=== PATIENT | male | born 1950 | race American Indian/Alaskan Native ===

== ENCOUNTER 2017-02-28 21:20 | Emergency (ER) | payer MEDICAID ==
[2017-03-01] MEDS ORDERED: GLUCOPHAGE PO ONE (05:00)
[2017-03-01] MEDS ORDERED: COZAAR PO ONE (05:01)
[2017-03-01] MEDS ORDERED: NORVASC PO ONE (05:01)
--- NOTE | 2017-03-01 05:05 | Emergency Department Report ---
ED Medical Clearance HPI - General Chief complaint: Medical Clearance Stated complaint: OUT OF MEDS FOR HTN AND DM Time Seen by Provider: 03/01/17 04:30 Source: patient Mode of arrival: Ambulatory - History of Present Illness Initial comments: 66-year-old male past medical history, HLD, hypertension, dmt2, p/w request for his daily dose of losartan, amlodipine and metformin. He sees in the ER with his daughter who is currently a patient here and has not had the opportunity to take his daily medicines. Denies headache dizziness shortness of breath chest pain nausea vomiting. Patient is awake alert and oriented 3 ambulatory not in acute distress. Denies increased urinary frequency dysuria or any paresthesias. She states she has been in usual state of behavior health otherwise. Patient is awake alert and oriented 3 not in acute distress nontoxic appearing. States he already has prescriptions at his local pharmacy that he must roll picker for these medicines. States has been out of his medicine for approximately 4 days. MD Complaint: medical clearance request Onset/Timin -: days(s) Home medications: Home Medications Medication Instructions Recorded Confirmed Last Taken amLODIPine 10 mg PO DAILY 04/21/15 04/22/15 04/21/15 Previous Rx's Medication Instructions Recorded Last Taken Type Pantoprazole [Protonix TAB] 20 mg PO BID 14 Days 08/20/13 04/21/15 Rx Losartan/Hydrochlorothiazide 1 each PO DAILY #14 tablet 03/01/17 Unknown Rx [Hyzaar 100-25 TAB] Simvastatin [Zocor TAB] 5 mg PO QHS #14 tablet 03/01/17 Unknown Rx metFORMIN [Glucophage] 1,000 mg PO BID #60 tablet 03/01/17 Unknown Rx Allergies/Adverse reactions: Allergies Allergy/AdvReac Type Severity Reaction Status Date / Time No Known Allergies Allergy Verified 08/14/13 16:43 ED Review of Systems ROS: Stated complaint: OUT OF MEDS FOR HTN AND DM Other details as noted in HPI Constitutional: denies: chills, fever Eyes: denies: eye pain, eye discharge, vision change ENT: denies: ear pain, throat pain Respiratory: denies: cough, shortness of breath, wheezing Cardiovascular: denies: chest pain, palpitations Endocrine: no symptoms reported Gastrointestinal: denies: abdominal pain, nausea, diarrhea Genitourinary: denies: urgency, dysuria Musculoskeletal: denies: back pain, joint swelling, arthralgia Skin: denies: rash, lesions Neurological: denies: headache, weakness, paresthesias Psychiatric: denies: anxiety, depression Hematological/Lymphatic: denies: easy bleeding, easy bruising ED Past Medical Hx - Past Medical History Hx Hypertension: Yes Hx Diabetes: Yes - Surgical History Additional Surgical History: 2 back surgeries, fusions in neck - Social History Smoking Status: Never Smoker Substance Use Type: None - Medications Home Medications: Home Medications Medication Instructions Recorded Confirmed Last Taken Type Pantoprazole [Protonix TAB] 20 mg PO BID 14 Days 08/20/13 04/22/15 04/21/15 Rx amLODIPine 10 mg PO DAILY 04/21/15 04/22/15 04/21/15 History Losartan/Hydrochlorothiazide 1 each PO DAILY #14 tablet 03/01/17 Unknown Rx [Hyzaar 100-25 TAB] Simvastatin [Zocor TAB] 5 mg PO QHS #14 tablet 03/01/17 Unknown Rx metFORMIN [Glucophage] 1,000 mg PO BID #60 tablet 03/01/17 Unknown Rx ED Physical Exam - General Limitations: No Limitations General appearance: alert, in no apparent distress - Head Head exam: Present: atraumatic, normocephalic - Eye Eye exam: Present: normal appearance, PERRL, EOMI - ENT ENT exam: Present: mucous membranes moist - Neck Neck exam: Present: normal inspection - Respiratory Respiratory exam: Present: normal lung sounds bilaterally. Absent: respiratory distress - Cardiovascular Cardiovascular Exam: Present: regular rate, normal rhythm. Absent: systolic murmur, diastolic murmur, rubs, gallop - GI/Abdominal GI/Abdominal exam: Present: soft, normal bowel sounds - Rectal Rectal exam: Present: deferred - Extremities Exam Extremities exam: Present: normal inspection - Back Exam Back exam: Present: normal inspection - Neurological Exam Neurological exam: Present: alert, oriented X3, CN II-XII intact, normal gait - Psychiatric Psychiatric exam: Present: normal affect, normal mood - Skin Skin exam: Present: warm, dry, intact, normal color. Absent: rash ED Course Vital Signs 02/28/17 21:26 Temperature 97.8 F Pulse Rate 66 Respiratory 18 Rate Blood Pressure 170/93 O2 Sat by Pulse 100 Oximetry ED Medical Decision Making - Medical Decision Making A/P: Medication refill request 1-patient finished a glucose unremarkable M excise of hyperglycemia on clinical exam or as per patient's history 2-will provide patient prescription for short refills on his regular medicines 3-patient advised to follow up with his primary care doctor ED Disposition Clinical Impression: Medication refill Disposition: DC- TO HOME OR SELFCARE Is pt being admited?: No Does the pt Need Aspirin: No Condition: Stable Prescriptions: Simvastatin [Zocor TAB] 5 mg PO QHS #14 tablet Losartan/Hydrochlorothiazide [Hyzaar 100-25 TAB] 1 each PO DAILY #14 tablet metFORMIN [Glucophage] 1,000 mg PO BID #60 tablet Referrals: [facility] [Outside] - 3-5 Days [facility] [Provider Group] - 3-5 Days ARASELI PATEL MD [Staff Physician] - 3-5 Days Time of Disposition: 05:10
[2017-03-01 05:26] VITALS: BP 168/87
== END 2017-03-01 05:27 | disposition home or self-care (01) ==
LOC: ED 21:20
DX: Z76.0 Encounter for issue of repeat prescription (principal); I10 Essential (primary) hypertension; E11.9 Type 2 diabetes mellitus without complications
CPT/HCPCS: 82962; 99283